=== PATIENT | female | born 2005 | race Caucasian/White ===

== ENCOUNTER 2023-05-16 03:05 | Emergency (ER) | payer OTHER ==
[2023-05-16] MEDS ORDERED: HYDROcodone/Acetaminophen 5/325 mg Tablet ONE (04:56)
== END 2023-05-16 05:45 | disposition home or self-care (01) ==
LOC: CSHERS 03:05
DX: S62.304A Unspecified fracture of fourth metacarpal bone, right hand, initial encounter for closed fracture (principal); Y04.0XXA Assault by unarmed brawl or fight, initial encounter
CPT/HCPCS: 29125